=== PATIENT | male | born 1995 | race Caucasian/White ===

== ENCOUNTER → 2017-11-24 | Outpatient (CLI) | payer OTHER | LOC: M RAD 16:43 | DX: H71.02 Cholesteatoma of attic, left ear (principal) | CPT/HCPCS: 70480 ==

== ENCOUNTER 2018-05-20 07:47 | Day surgery (SDC) | payer OTHER ==
[~2018-05-20] VITALS: Ht 177.8 cm; Wt 78.8 kg
[~2018-05-20 07:47] MED LIST: CETI10TA OP; CIPRODEX AS; FLUTISP
[2018-05-20] MEDS ORDERED: fentaNYL 250 MCG/5 ML INJECTION (J3010) As Ordered ONE (08:20)
[2018-05-20] MEDS ORDERED: ROCURONIUM BROMIDE 50 MG/5 ML VIAL As Ordered ONE (08:20)
[2018-05-20] MEDS ORDERED: LIDOCAINE 2% INJ 100 MG/5 ML SDV (FOR ANES.) As Ordered ONE (08:20)
[2018-05-20] MEDS ORDERED: PROPOFOL 200 MG/20 ML VIAL As Ordered ONE (08:20)
[2018-05-20] MEDS ORDERED: MIDAZOLAM INJ 2 MG/2 ML VIAL (J2250) As Ordered ONE (08:21)
[2018-05-20] MEDS ORDERED: SODIUM CHLORIDE 0.9% NASAL GEL 15GM (AYR) As Ordered ONE (08:26)
[2018-05-20] MEDS ORDERED: OXYMETAZOLINE NASAL SPRAY (AFRIN) As Ordered ONE ×2 (08:27→08:53)
[2018-05-20] MEDS ORDERED: LIDOCAINE W/EPINEPHRINE 1% 20ML VIAL As Ordered ONE (08:27)
[2018-05-20] MEDS ORDERED: METHYLENE BLUE 0.5% (5MG/ML) 10 ML AMP (PROVAYBLUE)(Q9968 PER 1MG) As Ordered ONE (08:27)
[2018-05-20] MEDS ORDERED: ONDANSETRON 4MG/2ML VIAL (J2405) As Ordered ONE (08:55)
[2018-05-20] MEDS ORDERED: SUGAMMADEX SODIUM 500 MG/5 ML VIAL (BRIDION) As Ordered ONE (08:55)
[2018-05-20] MEDS ORDERED: METOCLOPRAMIDE INJ 10MG/2ML VIAL (J2765) As Ordered ONE (08:55)
[2018-05-20] MEDS ORDERED: dexameTHASONE 4 MG/ML 1ML VIAL (J1100) As Ordered ONE (08:56)
[2018-05-20] MEDS ORDERED: KETOROLAC 60 MG/2 ML VIAL (J1885) As Ordered ONE (08:56)
[2018-05-20] MEDS ORDERED: ePHEDrine SULFATE 25 MG/5 ML(5MG/ML) SYRINGE As Ordered ONE (09:00)
[2018-05-20] MEDS ORDERED: SILVER NITRATE APPLICATOR As Ordered ONE (09:05)
[2018-05-20] MEDS ORDERED: ONDANSETRON 4MG/2ML VIAL (J2405) IV PRN (09:30)
[2018-05-20] MEDS ORDERED: fentaNYL 100 MCG/2 ML INJECTION (J3010) IV PRN (09:30)
[2018-05-20] MEDS ORDERED: LR 1,000 ML IV SCH (09:30)
[2018-05-20] MEDS ORDERED: MEPERIDINE INJ 25 MG/ML VIAL (J2175) IV PRN (09:30)
--- NOTE | 2018-05-20 09:43 | RO ---
DATE OF PROCEDURE: 05/20/2018 PREPROCEDURE DIAGNOSIS: Eustachian tube dysfunction more predominate on the left with formation of left retraction pocket. POSTPROCEDURE DIAGNOSIS: Eustachian tube dysfunction more predominate on the left with formation of left retraction pocket. PROCEDURE: Bilateral Aera Acclarent balloon dilation of the eustachian tubes bilaterally under nasal endoscopy and nasal endoscopy with photo documentation. SURGEON: Yobany Bean Jr., MD. TILE GRINDER: ANESTHESIA: General via endotracheal tube. ESTIMATED BLOOD LOSS: INDICATIONS FOR PROCEDURE: Left retraction pocket eustachian tube dysfunction. PROCEDURE IN DETAIL: With the patient in supine position after being induced, intubated, prepped and draped, the patient was elevated slightly about 20-30 degrees. Pediatric 30 degrees endoscope was utilized. The Aera Acclarent balloon device was checked. It was then set aside. The nasal cavity was decongested with topical Afrin. There was septal deviation to the left. The concavity was on the right. Once decongestion had been satisfactory, the 30 degrees scope as well as the Aera balloon and guidance system was insinuated into the region of the torus tubarius in the eustachian tube opening, careful cannulization with the device was done with minimal effort and brought till the yellow marker was just at the opening of the torus tubarius eustachian tube opening. It was dilated and inflated to 12 atmospheres of pressure and it was timed for 2 minutes then released and then removed. Attention then was drawn to the left side in a similar fashion. The left eustachian tube was cannulated. There was a septal deviation on this side but was able to remove and into proper position. This was cannulated and again brought up to 12 atmospheres of water and then two minute count was performed and then at 2 minutes the balloon was deflated. After this was done, endoscopic inspection showed good dilation bilaterally. However, there was a small area on the right side that required cauterization on the septum and this was cauterized with silver nitrate. Then at this point, the operation was concluded. There was no problems. No complications. [facility]
[2018-05-20 09:56] VITALS: BP 139/61
[2018-05-20] MEDS ORDERED: ACETAMINOPHEN TAB 650MG DOSE (2X325MG) PO PRN (10:00)
== END 2018-05-20 11:22 | disposition home or self-care (01) ==
LOC: M SDC 07:47
PROVIDERS: ATTEND Otolaryngology
DX: H69.83 Other specified disorders of Eustachian tube, bilateral (principal); Z79.899 Other long term (current) drug therapy
CPT/HCPCS: 69799; J1100; J1885; J2250; J2405; J2765; J3010; Q9968